=== PATIENT | female | born 1945 | race Caucasian/White ===

== ENCOUNTER 2017-06-16 12:39 | Emergency (ER) | payer OTHER ==
[~2017-06-16] VITALS: Ht 157.5 cm; Wt 72.8 kg
[2017-06-16 12:43] VITALS: BP 109/68; PULSE 70; RESP 18; TEMP 98; O2SAT 96
[2017-06-16] MEDS ORDERED: LORazepam 2 MG/ML VIAL IM SCH (13:30)
--- NOTE | 2017-06-16 13:39 | PD ---
HPI . Choking Chief Complaint: Anxiety Time Seen by Provider: 13:06 Travel History International Travel<30 days: Yes Contact w/Intl Traveler<30days: Yes Name of Country Traveled to[place] Traveled to known affect area: No History of Present Illness HPI Patient presents status post an episode of choking at home. It occurred approximately one hour prior to presentation. She choked on water. Following the choking episode, she had a great difficulty catching her breath. She states that that has now returned to normal but she is afraid to swallow. She states that she has had intermittent episodes of this for the last 20 years. She states that she has mentioned this to her primary care provider who has told her to be conscious of her eating. PFSH Past Medical History Cancer: Yes (cutaneous lymphoma) Diminished Hearing: No Tetanus Vaccination: Unknown Influenza Vaccination: Yes ?: Not Menopausal: Yes Past Surgical History Appendectomy: Yes Social History Alcohol Use: Yes (occassional) Tobacco Use: No Substance Use: No Allergies-Medications (Allergen,Severity, Reaction): Coded Allergies: No Known Allergies (Unverified , 06/16/17) Reported Meds & Prescriptions Reported Meds & Active Scripts Active No Active Prescriptions or Reported Medications Review of Systems Except as stated in HPI: all other systems reviewed are Neg Respiratory: Positive: Shortness of Breath Gastrointestinal: Positive: Dysphagia Psychiatric: Positive: Anxiety Physical Exam Narrative GENERAL: Patient is initially calm but became extremely anxious and tearful while she was telling her story. SKIN: warm/dry. HEAD: Normocephalic. Atraumatic. EYES: Pupils equal and round. No scleral icterus. No injection or drainage. ENT: No nasal bleeding or discharge. Mucous membranes pink and moist. She does have some irritation of her oropharynx. NECK: Trachea midline. Full range of motion without pain.. CARDIOVASCULAR: Regular rate and rhythm. Heart sounds are normal. RESPIRATORY: No accessory muscle use. Clear to auscultation. Breath sounds equal bilaterally. GASTROINTESTINAL: Abdomen soft. Nontender. Bowel sounds present. Nondistended. : MUSCULOSKELETAL: No obvious deformities. NEUROLOGICAL: Awake and alert. No obvious cranial nerve deficits. Motor grossly within normal limits. Normal speech. PSYCHIATRIC: Appropriate mood and affect; insight and judgment normal. Data Data Last Documented VS Vital Signs Date Time Temp Pulse Resp B/P (MAP) Pulse Ox O2 Delivery O2 Flow Rate FiO2 06/16/17 12:43 98.0 70 18 109/68 (82) 96 Orders Orders Lorazepam Inj (Ativan Inj) (06/16/17 13:30) Chest, Pa & Lat (06/16/17 13:25) MDM Medical Decision Making Medical Screen Exam Complete: Yes Emergency Medical Condition: Yes Interpretation(s) EKG shows a normal sinus rhythm with no acute ischemic change. Differential Diagnosis My differential diagnosis of dysphagia includes but is not limited to stroke, esophageal stricture, esophageal foreign body, reflux Narrative Course Patient presents following a choking episode. She reports numerous previous similar episodes. It does not sound like she has been evaluated by gastroenterology. I have ordered a chest x-ray to rule out aspiration. I will give her Ativan. I anticipate discharge with referral to gastroenterology. CXR: The cardiac silhouette is enlarged in transverse diameter. The lungs are free of acute parenchymal opacity. No effusions are identified. There is eventration of the right hemidiaphragm. There is prominence of the aortic knob is with calcification characteristic of atherosclerotic vascular disease. I will discharge her with a referral to gastroenterology. Diagnosis Primary Impression: Dysphagia Qualified Codes: R13.10 - Dysphagia, unspecified Referrals: Triny Woodall MD Patient Instructions: Anxiety (DC), Chronic Dysphagia (DC), General Instructions Scripts No Active Prescriptions or Reported Meds Disposition: 01 DISCHARGE HOME Condition: Stable Odalis Thao MD Jun 16, 2017 13:39
--- NOTE | 2017-06-16 15:18 | RADRPT ---
EXAM DATE/TIME: 06/16/2017 13:37 [facility] COMPARISON: No previous studies available for comparison. INDICATIONS : Shortness of breath after choking on water today. MEDICAL HISTORY : Lymphoma. SURGICAL HISTORY : Appendectomy. ENCOUNTER: Initial ACUITY: 1 day PAIN SCORE: 0/10 LOCATION: Bilateral chest FINDINGS: The cardiac silhouette is enlarged in transverse diameter. The lungs are free of acute parenchymal op acity. No effusions are identified. There is eventration of the right hemidiaphragm. There is promine nce of the aortic knob is with calcification characteristic of atherosclerotic vascular disease. CONCLUSION: 1. Cardiomegaly. No acute pulmonary disease. Pawel Dawkins MD on June 16, 2017 at 15:15 Board Certified Radiologist. This report was verified electronically.
== END 2017-06-16 15:44 | disposition home or self-care (01) ==
LOC: PHED 12:39
DX: R13.10 Dysphagia, unspecified (principal); R06.02 Shortness of breath; F41.9 Anxiety disorder, unspecified
CPT/HCPCS: 71020; 96372; 99284; J2060

== ENCOUNTER 2017-09-13 14:27 | Emergency (ER) | payer BC ==
[~2017-09-13] VITALS: Ht 157.5 cm; Wt 70.3 kg
[2017-09-13 14:44] VITALS: BP 130/76; PULSE 68; RESP 16; TEMP 98.3; O2SAT 97
[2017-09-13] MEDS ORDERED: DICL75TA PO (15:54)
--- NOTE | 2017-09-13 16:00 | PD ---
HPI Chief Complaint: Musculoskeletal Complaint Time Seen by Provider: 14:57 Travel History International Travel<30 days: No Contact w/Intl Traveler<30days: No Traveled to known affect area: No History of Present Illness HPI 72-year-old female that presents to the ED for evaluation of left knee pain after injury 3 weeks ago. Per patient she was doing was spinning class. Per patient she is very active and she does a lot of workouts. Per patient she has been doing fine and still she did a spin class 3 weeks ago and she developed some pain in her left knee. Per patient the pain started after the spin class. No other injuries reported. Per patient she doesn't know she did something to it or something else happened. She states that the pain is mainly during the night. Per patient and ambulating makes it better. Weightbearing also makes it worse. Whenever she ambulate for long period time the pain seems to improve. She denies any surgeries or trauma to this knee in the past. Pain per patient is 4 out of 10. Able to ambulate here with minimal limping. Denies any allergies to medication. No chest pain or shortness of breath. No other injuries reported. PFSH Past Medical History Cancer: Yes (cutaneous lymphoma) Diminished Hearing: No Tetanus Vaccination: Unknown ?: Not Menopausal: Yes Past Surgical History Appendectomy: Yes Social History Alcohol Use: Yes (occassional) Tobacco Use: No Substance Use: No Allergies-Medications (Allergen,Severity, Reaction): Coded Allergies: No Known Allergies (Unverified , 09/13/17) Reported Meds & Prescriptions Reported Meds & Active Scripts Active No Active Prescriptions or Reported Medications Review of Systems Except as stated in HPI: all other systems reviewed are Neg Physical Exam Narrative GENERAL: SKIN: Warm and dry. HEAD: Atraumatic. Normocephalic. EYES: Pupils equal and round. No scleral icterus. No injection or drainage. ENT: No nasal bleeding or discharge. Mucous membranes pink and moist. NECK: Trachea midline. No JVD. CARDIOVASCULAR: Regular rate and rhythm. RESPIRATORY: No accessory muscle use. Clear to auscultation. Breath sounds equal bilaterally. GASTROINTESTINAL: Abdomen soft, non-tender, nondistended. Hepatic and splenic margins not palpable. MUSCULOSKELETAL: Extremities without clubbing, cyanosis, or edema. No obvious deformities. Full range of motion of the upper and lower extremities bilaterally. 2+ pulses bilaterally. Patient has negative anterior and posterior drawer test. Ligaments appear to be intact otherwise. Most of the pain appears to be in the medial aspect of the knee but there is no swelling or deformity noted. NEUROLOGICAL: Awake and alert. No obvious cranial nerve deficits. Motor grossly within normal limits. Five out of 5 muscle strength in the arms and legs. Normal speech. PSYCHIATRIC: Appropriate mood and affect; insight and judgment normal. Data Data Last Documented VS Vital Signs Date Time Temp Pulse Resp B/P (MAP) Pulse Ox O2 Delivery O2 Flow Rate FiO2 09/13/17 14:44 98.3 68 16 130/76 (94) 97 Orders Orders Knee, Complete (4vws) (09/13/17 ) [facility] Medical Decision Making Medical Screen Exam Complete: Yes Emergency Medical Condition: Yes Medical Record Reviewed: Yes Interpretation(s) X-ray of the left knee show arthritis otherwise unremarkable. No sign of acute disease. Read by radiologist. Differential Diagnosis Fracture versus arthritis versus bruise versus contusion versus strain Narrative Course 72-year-old female that presents to the ED for evaluation of left knee pain. Patient was properly examined and was found to have signs and symptoms which appear to be more consistent with osteoarthritis than anything. Patient is able to ambulate but gets pain improvement with ambulation. She is able to ambulate with it. Has been going on for about 3 weeks. X-ray was returned sign of bony injury secondary to her age. X-ray was negative for this. Patient was reassured. At this time likely was to arthritis. We'll start patient on anti-inflammatories. Follow with PCP. See ED worsening symptoms. Diagnosis Primary Impression: Osteoarthritis Qualified Codes: M17.12 - Unilateral primary osteoarthritis, left knee Patient Instructions: General Instructions Additional Instructions: Get a knee brace or Don wrap [id number] to put on the need to help alleviate some of the discomfort as well as to move. Take medication as prescribed. He can also take Tylenol or Motrin for the pain as needed. Ice or warm compresses. Avoid extraneous activity with the left knee if possible. Use insulin as well as walk a fairly normal in or high impact on the knee as this will make likely the symptoms worse. See ED worsening symptoms. Follow with PCP. Med/Other Pt SpecificInfo: Prescription(s) given Scripts Diclofenac Sodium (Diclofenac Sodium DR) 75 Mg Tabdr 75 MG PO BID Y for PAIN SCALE 1 TO 10, #20 TAB 0 Refills Prov: Melia Mahan MD 09/13/17 Disposition: 01 DISCHARGE HOME Condition: [place] Sep 13, 2017 16:00
--- NOTE | 2017-09-13 16:25 | RADRPT ---
EXAM DATE/TIME: 09/13/2017 15:49 [facility] COMPARISON: No previous studies available for comparison. INDICATIONS : Left knee pain for 3 weeks, no known injury MEDICAL HISTORY : None. SURGICAL HISTORY : None. ENCOUNTER: Initial ACUITY: 3 weeks PAIN SCORE: 4/10 LOCATION: Left knee FINDINGS: Trace joint effusion. Mild degenerative changes medial compartment. Anatomic alignment. Fracture n ot appreciated. CONCLUSION: Trace degenerative changes otherwise negative.. Iftikhar Charlton MD FACR on September 13, 2017 at 16:21 Board Certified Radiologist. This report was verified electronically.
== END 2017-09-13 16:48 | disposition home or self-care (01) ==
LOC: PHEFT 14:27
DX: M17.12 Unilateral primary osteoarthritis, left knee (principal); Z85.72 Personal history of non-Hodgkin lymphomas
CPT/HCPCS: 73564; 99283